=== PATIENT | female | born 1990 | race Caucasian/White ===

== ENCOUNTER 2024-02-20 13:49 | Emergency (ER) | payer MEDICAID, OTHER ==
[~2024-02-20] VITALS: Ht 167.6 cm; Wt 79.0 kg
[2024-02-20 14:04] VITALS: O2SAT 100
[2024-02-20 15:21] LABS: CHLORIDE 106 mEq/L (98-107); POTASSIUM 3.5 mEq/L (3.5-5.1); SODIUM 137 mEq/L (136-145)
[2024-02-20 15:22] LABS: CALCIUM 9.7 mg/dL (8.7-10.4); CARBON DIOXIDE 24 mEq/L (21-32)
[2024-02-20 15:25] LABS: BASOPHILS % 0.1 % (0.0-2.0); EOSINOPHILS % 0.1 % (0.0-5.0); HEMATOCRIT. 43.2 % (36.0-48.0); HEMOGLOBIN. 14.8 g/dL (12.0-16.0); LYMPHOCYTES % 8.6 % (20.0-50.0); MEAN CORPUSCULAR HEMOGLOBIN 30.2 pg (28.0-32.0); MEAN CORPUSCULAR HGB CONC 34.3 g/dL (31.0-37.0); MEAN PLATELET VOLUME 8.1 fl (7.4-10.4); MONOCYTES % 6.5 % (2.0-8.0); NEUTROPHILS % 84.7 % (40.0-76.0); PLATELET 337 x1000/uL (130-400); RED BLOOD CELL COUNT 4.91 mill/uL (4.2-5.4)
[2024-02-20 15:27] LABS: CREATININE 0.7 mg/dL (0.6-1.0); GLUCOSE 94 mg/dL (70-105); UREA NITROGEN BLOOD 10 mg/dL (9-23)
[2024-02-20 15:29] LABS: ALANINE AMINOTRANSFERASE 22 IU/L (10-49); ALBUMIN 4.5 g/dL (3.2-4.8); ASPARTATE AMINOTRANSFERASE 22 IU/L (<34); BILIRUBIN TOTAL 0.7 mg/dL (0.1-1.0); PROTEIN TOTAL 7.8 g/dL (6.0-8.3)
[2024-02-20] MEDS: ONDANSETRON HCL 4MG/2ML INJ IM ONE (15:30)
[2024-02-20] MEDS: ACETAMINOPHEN 325MG TABLET PO ONE (15:30)
[2024-02-20] MEDS: SODIUM CHLORIDE 0.9% IV ONE (15:30)
[2024-02-20 16:36] LABS: HCG SCREEN POSITIVE
[2024-02-20 17:10] LABS: CLARITY URINE CLEAR (CLEAR); COLOR URINE YELLOW (YELLOW); GLUCOSE URINE NEGATIVE (NEGATIVE); KETONES URINE 2+ (NEGATIVE); LEUKOCYTE ESTERASE URINE NEGATIVE (NEGATIVE); NITRITE URINE NEGATIVE (NEGATIVE); OCCULT BLOOD URINE NEGATIVE (NEGATIVE); PH URINE 6.5 (4.5-8.0); PROTEIN URINE TRACE (NEGATIVE); SPECIFIC GRAVITY URINE 1.026 (1.005-1.030)
[2024-02-20 17:35] LABS: BACTERIA URINE 2+; SQUAMOUS EPITHELIAL CELL URINE 1+ /lpf (RARE/1+)
[2024-02-20 17:36] LABS: RBC URINE 0-2 /hpf (0-2); WBC URINE 0-2 /hpf (0-2)
[2024-02-20 20:59] VITALS: BP 114/85; PULSE 87; RESP 16; TEMP 98.3
== END 2024-02-20 21:01 | disposition home or self-care (01) ==
LOC: ER 13:49
DX: O26.891 Other specified pregnancy related conditions, first trimester (principal); O46.8X1 Other antepartum hemorrhage, first trimester; Z3A.01 Less than 8 weeks gestation of pregnancy; Z98.890 Other specified postprocedural states
CPT/HCPCS: 80053; 81003; 84703; 84702; 85025; 86850; 86900; 86901; 36415; 76801; 76817; 96360; 96361; 96372; 99285; J2405; J7030; Z7610 ×3

== ENCOUNTER 2024-04-15 04:59 | Emergency (ER) | payer OTHER ==
[~2024-04-15] VITALS: Ht 165.1 cm; Wt 70.0 kg
[2024-04-15 05:01] VITALS: O2SAT 98
[2024-04-15] MEDS: ONDANSETRON HCL 4MG/2ML INJ IV STA (06:02)
[2024-04-15] MEDS: FAMOTIDINE 20MG/2ML VIAL IV STA (06:02)
[2024-04-15 06:23] LABS: BASOPHILS % 0.1 % (0.0-2.0); EOSINOPHILS % 1.3 % (0.0-5.0); HEMATOCRIT. 37.6 % (36.0-48.0); HEMOGLOBIN. 12.8 g/dL (12.0-16.0); LYMPHOCYTES % 22.5 % (20.0-50.0); MEAN CORPUSCULAR HEMOGLOBIN 29.9 pg (28.0-32.0); MEAN CORPUSCULAR HGB CONC 34.1 g/dL (31.0-37.0); MEAN CORPUSCULAR VOLUME 87.7 fL (81.0-99.0); MEAN PLATELET VOLUME 8.9 fl (7.4-10.4); MONOCYTES % 10.8 % (2.0-8.0); NEUTROPHILS % 65.3 % (40.0-76.0); PLATELET 255 x1000/uL (130-400); RED BLOOD CELL COUNT 4.28 mill/uL (4.2-5.4); RED CELL DISTRIBUTION WIDTH 13.3 % (11.6-14.6); WHITE BLOOD COUNT 10.4 x1000/uL (4.5-11.0)
[2024-04-15 06:24] LABS: CARBON DIOXIDE 23 mEq/L (21-32); CHLORIDE 107 mEq/L (98-107); POTASSIUM 3.5 mEq/L (3.5-5.1); SODIUM 139 mEq/L (136-145)
[2024-04-15 06:29] LABS: CREATININE 0.7 mg/dL (0.6-1.0)
[2024-04-15 06:30] LABS: GLUCOSE 100 mg/dL (70-105); UREA NITROGEN BLOOD 9 mg/dL (9-23)
[2024-04-15 06:31] LABS: ALANINE AMINOTRANSFERASE 16 IU/L (10-49); ALBUMIN 3.9 g/dL (3.2-4.8); ASPARTATE AMINOTRANSFERASE 19 IU/L (<34)
[2024-04-15 06:32] LABS: BILIRUBIN TOTAL 0.2 mg/dL (0.1-1.0); PROTEIN TOTAL 6.5 g/dL (6.0-8.3)
[2024-04-15 07:48] LABS: BILIRUBIN DIRECT < 0.1 mg/dL (<=3.0)
[2024-04-15] MEDS ORDERED: FAMO-135 MT (09:14)
[2024-04-15] MEDS ORDERED: ONDA4TAB11 PO (09:14)
[2024-04-15 09:35] VITALS: BP 116/72; PULSE 75; RESP 18; TEMP 98.3
== END 2024-04-15 09:35 | disposition home or self-care (01) ==
LOC: ER 05:08
DX: O26.892 Other specified pregnancy related conditions, second trimester (principal); R11.2 Nausea with vomiting, unspecified; Z3A.15 15 weeks gestation of pregnancy
CPT/HCPCS: 99284; 96374; 96375; 80076; 80048; 83690; 85025; 36415; J3490; J2405

== ENCOUNTER 2025-03-21 03:05 | Emergency (ER) | payer BC, MEDICAID ==
[~2025-03-21] VITALS: Ht 160 cm; Wt 81.0 kg
[~2025-03-21 03:05] MED LIST: FAMO-135 MT; ONDA-239 PO
[2025-03-21 03:11] VITALS: O2SAT 98
[2025-03-21 03:53] LABS: BASOPHILS % 0.3 % (0.0-2.0); EOSINOPHILS % 1.2 % (0.0-5.0); HEMATOCRIT. 43.8 % (36.0-48.0); HEMOGLOBIN. 14.9 g/dL (12.0-16.0); LYMPHOCYTES % 39.7 % (20.0-50.0); MEAN CORPUSCULAR HEMOGLOBIN 29.6 pg (28.0-32.0); MEAN CORPUSCULAR HGB CONC 33.9 g/dL (31.0-37.0); MEAN CORPUSCULAR VOLUME 87.3 fL (81.0-99.0); MEAN PLATELET VOLUME 8.6 fl (7.4-10.4); MONOCYTES % 8.3 % (2.0-8.0); NEUTROPHILS % 50.5 % (40.0-76.0); PLATELET 288 x1000/uL (130-400); RED BLOOD CELL COUNT 5.01 mill/uL (4.2-5.4); RED CELL DISTRIBUTION WIDTH 13.5 % (11.6-14.6); WHITE BLOOD COUNT 8.5 x1000/uL (4.5-11.0)
[2025-03-21 03:56] LABS: CARBON DIOXIDE 29 mEq/L (21-32); CHLORIDE 105 mEq/L (98-107); POTASSIUM 3.7 mEq/L (3.5-5.1); SODIUM 142 mEq/L (136-145)
[2025-03-21 03:57] LABS: CALCIUM 9.4 mg/dL (8.7-10.4)
[2025-03-21] MEDS: FAMOTIDINE 20MG TABLET PO ONE (03:59)
[2025-03-21] MEDS: ONDANSETRON 4MG ODT PO ONE (03:59)
[2025-03-21] MEDS: MAGNESIUM/ALUMINUM HYDROXIDE/SIMETHICONE 30ML UDC PO ONE (03:59)
[2025-03-21 04:01] LABS: CREATININE 0.9 mg/dL (0.6-1.0); GLUCOSE 146 mg/dL (70-105)
[2025-03-21 04:02] LABS: ETHANOL BLOOD < 10 mg/dL (<10); UREA NITROGEN BLOOD 10 mg/dL (9-23)
[2025-03-21 04:03] LABS: ALANINE AMINOTRANSFERASE 9 IU/L (10-49); ALBUMIN 4.5 g/dL (3.2-4.8); ASPARTATE AMINOTRANSFERASE 16 IU/L (<34)
[2025-03-21 04:04] LABS: BILIRUBIN DIRECT 0.1 mg/dL (<=3.0); BILIRUBIN TOTAL 0.4 mg/dL (0.1-1.0); PROTEIN TOTAL 7.4 g/dL (6.0-8.3)
[2025-03-21 04:24] LABS: HCG SCREEN NEGATIVE
[2025-03-21] MEDS: KETOROLAC 30MG/ML VIAL IM NR (04:26)
[2025-03-21 04:32] LABS: TROPONIN I HIGH SENSITIVITY < 4 ng/L (3.0-34)
[2025-03-21] MEDS ORDERED: MAG-55 MT (04:41)
[2025-03-21] MEDS ORDERED: FAMO-135 MT (04:41)
[2025-03-21 05:17] VITALS: BP 134/85; PULSE 72; RESP 18; TEMP 36.8; O2SAT 98
== END 2025-03-21 05:19 | disposition home or self-care (01) ==
LOC: ER 03:05
DX: K80.70 Calculus of gallbladder and bile duct without cholecystitis without obstruction (principal); R10.13 Epigastric pain; Z79.899 Other long term (current) drug therapy
CPT/HCPCS: 80076; 80048; 80320; 84703; 83690; 85025; 84484; 36415; 76705; 96372; 99285; Q0162; J1885; G0480

== ENCOUNTER 2025-08-29 20:51 | Emergency (ER) | payer BC, MEDICAID ==
[~2025-08-29] VITALS: Ht 157.5 cm; Wt 87.0 kg
[~2025-08-29 20:51] MED LIST changes: +MAG-55 MT
[2025-08-29 20:53] VITALS: O2SAT 99
[2025-08-29 22:11] LABS: BASOPHILS % 0.4 % (0.0-2.0); EOSINOPHILS % 1.2 % (0.0-5.0); HEMATOCRIT. 39.2 % (36.0-48.0); HEMOGLOBIN. 13.4 g/dL (12.0-16.0); LYMPHOCYTES % 22.9 % (20.0-50.0); MEAN PLATELET VOLUME 8.1 fl (7.4-10.4); MONOCYTES % 10.7 % (2.0-8.0); NEUTROPHILS % 64.8 % (40.0-76.0); PLATELET 324 x1000/uL (130-400); RED BLOOD CELL COUNT 4.47 mill/uL (4.2-5.4); RED CELL DISTRIBUTION WIDTH 13.4 % (11.6-14.6)
[2025-08-29 22:27] LABS: CREATININE 0.7 mg/dL (0.6-1.0)
[2025-08-29 22:28] LABS: HCG SCREEN POSITIVE; UREA NITROGEN BLOOD 7 mg/dL (9-23)
[2025-08-29 22:29] LABS: ASPARTATE AMINOTRANSFERASE 11 IU/L (<34)
[2025-08-29 22:30] LABS: BILIRUBIN DIRECT < 0.1 mg/dL (<=3.0); BILIRUBIN TOTAL 0.2 mg/dL (0.1-1.0); PROTEIN TOTAL 7.1 g/dL (6.0-8.3)
[2025-08-29] MEDS: SODIUM CHLORIDE 0.9% 1,000 ML IV ONE (22:56)
[2025-08-29 23:40] VITALS: BP 128/86; PULSE 82; RESP 16; TEMP 36.9; O2SAT 100
== END 2025-08-29 23:55 | disposition home or self-care (01) ==
LOC: ER 20:51 → CMPBEDREQ 08-30 08:46
DX: O44.32 Partial placenta previa with hemorrhage, second trimester (principal); O44.52 Low lying placenta with hemorrhage, second trimester; N93.9 Abnormal uterine and vaginal bleeding, unspecified; Z3A.17 17 weeks gestation of pregnancy
CPT/HCPCS: 99284; 76801; 80076; 80048; 84703; 84702; 83690; 85025; 86850; 86900; 86901; 36415; J7030